=== PATIENT | female | born 1935 | race Caucasian/White ===

== ENCOUNTER 2017-12-16 10:50 | Day surgery (SDC) | payer MEDICARE, OTHER ==
[~2017-12-16 10:50] MED LIST: LIDOCAINE 2% INJ 100 MG/5 ML SDV (FOR ANES.) As Ordered; PROPOFOL 200 MG/20 ML VIAL As Ordered
[2017-12-16] MEDS: NS 1,000 ML IV (11:17)
== END 2017-12-16 13:09 | disposition home or self-care (01) ==
LOC: M OPP 10:50
DX: R19.5 Other fecal abnormalities (principal); Z86.010 Personal history of colon polyps; K64.2 Third degree hemorrhoids; K64.1 Second degree hemorrhoids; I10 Essential (primary) hypertension; E78.5 Hyperlipidemia, unspecified; Z95.1 Presence of aortocoronary bypass graft; E11.9 Type 2 diabetes mellitus without complications; Z78.0 Asymptomatic menopausal state; E66.9 Obesity, unspecified; Z86.12 Personal history of poliomyelitis; Z87.442 Personal history of urinary calculi; Z79.82 Long term (current) use of aspirin; Z79.84 Long term (current) use of oral hypoglycemic drugs; Z79.899 Other long term (current) drug therapy
CPT/HCPCS: 45378

== ENCOUNTER → 2021-07-24 | Outpatient (REF) | payer MEDICARE, OTHER ==
[~2021-07-24] MED LIST changes: +ASPI81TA26 PO; +ATOR80TA59 PO; +GLIP5TAB20 PO; -LIDOCAINE 2% INJ 100 MG/5 ML SDV (FOR ANES.) As Ordered; +METO25TA4 PO; +MULT1TAB10 PO; +NU-M1TAB PO; +OMEG10002 PO; -PROPOFOL 200 MG/20 ML VIAL As Ordered; +TRAD5TAB PO; +VITA-121 PO
== END ==
LOC: M LAB REF 16:16
PROVIDERS: ATTEND Nurse Practitioner Adult Health
DX: R53.83 Other fatigue (principal)

== ENCOUNTER 2022-08-31 17:02 | Emergency (ER) | payer MEDICARE, OTHER ==
[~2022-08-31] VITALS: Ht 160 cm; Wt 61.4 kg
[2022-08-31 18:00] LABS: BASO % 0.3 % (0.0-1.0); EOS # 0.1 10^3/uL (0.0-0.5); HEMOGLOBIN 14.1 g/dl (12.0-15.5); LYMPH # 3.2 10^3/uL (1.5-5.0); LYMPH % 28.1 % (24.0-44.0); MEAN CORPUSCULAR HGB CONC 31.3 g/dl (32.0-36.5); MEAN CORPUSCULAR VOLUME 102.3 fl (80.0-96.0); MONO # 0.9 10^3/uL (0.0-0.8); MONO % 7.9 % (2.0-8.0); NEUTROPHILS # 7.1 10^3/uL (1.5-8.5); NEUTROPHILS % 62.4 % (36.0-66.0); WHITE BLOOD COUNT 11.4 10^3/uL (4.0-10.0)
[2022-08-31 18:16] LABS: PLATELET COUNT, AUTOMATED 242 10^3/uL (150-450)
[2022-08-31 18:19] LABS: BLOOD UREA NITROGEN 16 MG/DL (9-23); CALCIUM LEVEL 9.2 MG/DL (8.3-10.6); CARBON DIOXIDE LEVEL 33 MMOL/L (20-31); CHLORIDE LEVEL 98 MMOL/L (98-107); CK-MB VALUE MASS 1.6 NG/ML (<3.6); CPK CREATINE PHOSPHOKINASE 50 U/L (34-145); CREATININE FOR GFR 0.91 MG/DL (0.55-1.30); GLOMERULAR FILTRATION RATE > 60.0 (>32); GLUCOSE, FASTING 174 MG/DL (74-106); POTASSIUM SERUM 5.1 MMOL/L (3.5-5.1); SODIUM LEVEL 139 MMOL/L (136-145)
[2022-08-31 19:25] LABS: INR 0.91; PROTHROMBIN TIME 12.5 SECONDS (12.5-14.5)
[2022-08-31] MEDS ORDERED: SUCRALFATE SUSP 1GM/10ML UD PO ONE (19:25)
[2022-08-31] MEDS ORDERED: ISOVUE-370 76% 100ML VIAL As Ordered ONE (19:28)
[2022-08-31 19:47] LABS: ALBUMIN 3.7 G/DL (3.2-5.2); BILIRUBIN,DIRECT 0.2 MG/DL (<0.4); BILIRUBIN,TOTAL 0.7 MG/DL (0.3-1.2); TOTAL PROTEIN 6.8 G/DL (5.7-8.2)
[2022-08-31 19:48] LABS: CK-MB VALUE MASS 1.2 NG/ML (<3.6); MB/CK RELATIVE INDEX 3.42 (< OR =4)
[2022-08-31 19:51] LABS: THYROID STIMULATING HORMONE 1.062 uIU/ML (0.55-4.78)
[2022-08-31] MEDS ORDERED: KETOROLAC 30 MG/ML 1ML VIAL IV ONE (21:00)
[2022-08-31] MEDS ORDERED: SUCR1TA PO (23:19)
[2022-08-31] MEDS ORDERED: OMEP-173 PO (23:19)
[2022-08-31 23:26] VITALS: BP 184/82; TEMP 97.8; O2SAT 95
== END 2022-08-31 23:38 | disposition home or self-care (01) ==
LOC: M ED 17:02
DX: R07.89 Other chest pain (principal); K21.00 Gastro-esophageal reflux disease with esophagitis, without bleeding; E11.9 Type 2 diabetes mellitus without complications; I10 Essential (primary) hypertension; E78.5 Hyperlipidemia, unspecified; G47.33 Obstructive sleep apnea (adult) (pediatric); Z95.5 Presence of coronary angioplasty implant and graft; Z86.12 Personal history of poliomyelitis; Z79.899 Other long term (current) drug therapy; Z79.82 Long term (current) use of aspirin
CPT/HCPCS: 70491; 71045; 71275; 80048; 80076; 82550; 82553; 83690; 83880; 84443; 84484; 85025; 85610; 85730; 87486; 87581; 87633; 87798; 93005; 93041; 94760; 96374; 99285; J1885; Q9967

== ENCOUNTER 2023-07-27 12:04 | Emergency (ER) | payer MEDICARE, OTHER ==
[~2023-07-27] VITALS: Ht 160 cm; Wt 59.1 kg
[~2023-07-27 12:04] MED LIST changes: +OMEP-173 PO; +SUCR1TA PO
[2023-07-27] MEDS ORDERED: ACET650T61 PO (12:26)
[2023-07-27] MEDS ORDERED: NEBI5TAB PO (12:26)
[2023-07-27] MEDS ORDERED: FURO20TA2 PO (12:26)
[2023-07-27] MEDS ORDERED: GLIP5TAB17 PO (12:26)
[2023-07-27] MEDS ORDERED: MED REC IN PROGRESS XX SCH (14:35)
[2023-07-27] MEDS ORDERED: MULTTAB61 PO (15:23)
[2023-07-27] MEDS ORDERED: VITA100093 PO (15:23)
[2023-07-27] MEDS ORDERED: OMEP-173 PO (15:23)
[2023-07-27] MEDS ORDERED: HOME MED LIST COMPLETE! XX SCH (15:25)
[2023-07-27] MEDS: ACETAMINOPH W/CODEINE #3 TAB UD PO ONE (15:36)
[2023-07-27 17:03] VITALS: BP 173/71; TEMP 97.4; O2SAT 90
== END 2023-07-27 17:20 | disposition home or self-care (01) ==
LOC: M ED 12:04
DX: M51.86 Other intervertebral disc disorders, lumbar region (principal); Z79.1 Long term (current) use of non-steroidal anti-inflammatories (NSAID); Z79.84 Long term (current) use of oral hypoglycemic drugs; Z79.810 Long term (current) use of selective estrogen receptor modulators (SERMs); Z79.899 Other long term (current) drug therapy

== ENCOUNTER → 2023-07-28 | Outpatient (REF) | payer MEDICARE, OTHER ==
[~2023-07-28] MED LIST changes: +ACET650T61 PO; +FURO20TA2 PO; +GLIP5TAB17 PO; +MULTTAB61 PO; +NEBI5TAB PO; +VITA100093 PO
[2023-07-28 13:27] LABS: FERRITIN 252.4 NG/ML (7.3-270.7)
[2023-07-28 13:31] LABS: PERCENT SATURATION 8.4 % (13.2-45.0)
== END ==
LOC: M LAB REF 11:22
PROVIDERS: ATTEND Internal Medicine
DX: D64.9 Anemia, unspecified (principal); I50.32 Chronic diastolic (congestive) heart failure; N39.0 Urinary tract infection, site not specified

== ENCOUNTER → 2023-08-23 | Outpatient (REF) | payer MEDICARE, OTHER | LOC: M LAB REF 14:51 | PROVIDERS: ATTEND Internal Medicine | DX: N18.31 Chronic kidney disease, stage 3a (principal); R39.15 Urgency of urination ==

== ENCOUNTER → 2023-08-25 | Outpatient (CLI) | payer MEDICARE, OTHER | LOC: M WUC 12:22 | PROVIDERS: ATTEND Internal Medicine | DX: R05.3 Chronic cough (principal); I51.7 Cardiomegaly ==

== ENCOUNTER → 2023-11-16 | Outpatient (REF) | payer MEDICARE, OTHER ==
[~2023-11-16] MED LIST changes: -NEBI5TAB PO; +NEBI5TAB2 PO
== END ==
LOC: M LAB REF 16:13
PROVIDERS: ATTEND Internal Medicine
DX: R35.0 Frequency of micturition (principal); R30.0 Dysuria

== ENCOUNTER → 2024-08-03 | Outpatient (REF) | payer MEDICARE, OTHER ==
[~2024-08-03] MED LIST changes: +GLIP-318 PO; -GLIP5TAB20 PO
[2024-08-03 13:09] LABS: PERCENT SATURATION 49.3 % (13.2-45.0)
[2024-08-03 13:12] LABS: FERRITIN 183.7 NG/ML (7.3-270.7)
== END ==
LOC: M LAB REF 11:42
PROVIDERS: ATTEND Internal Medicine
DX: D64.9 Anemia, unspecified (principal); R35.0 Frequency of micturition

== ENCOUNTER → 2024-10-16 | Outpatient (CLI) | payer MEDICARE, OTHER | LOC: M PLAIMG 14:36 | PROVIDERS: ATTEND Physician Assistant | DX: I27.81 Cor pulmonale (chronic) (principal); I34.81 Nonrheumatic mitral (valve) annulus calcification; I34.0 Nonrheumatic mitral (valve) insufficiency ==